=== PATIENT | male | born 1995 | race Caucasian/White ===

== ENCOUNTER 2016-07-27 00:56 | Emergency (ER) | payer BC ==
[~2016-07-27] VITALS: Ht 167.6 cm; Wt 59.0 kg
[2016-07-27 01:14] VITALS: BP 124/68; PULSE 60; RESP 18; TEMP 98.2; O2SAT 99
[2016-07-27 02:20] VITALS: BP 124/68; PULSE 60; RESP 18; TEMP 98.2; O2SAT 99
== END 2016-07-27 02:20 | disposition home or self-care (01) ==
LOC: SED 00:56
DX: M79.671 Pain in right foot (principal); J45.909 Unspecified asthma, uncomplicated
CPT/HCPCS: 99284

== ENCOUNTER 2019-05-12 13:42 | Emergency (ER) | payer BC ==
[~2019-05-12] VITALS: Ht 167.6 cm; Wt 61.7 kg
[2019-05-12 13:58] VITALS: BP_SYST 118
[2019-05-12] MEDS ORDERED: NACL 0.9% 1,000 ML IV ONE (14:15)
[2019-05-12] MEDS ORDERED: ONDANSETRON HCL 4 MG/2 ML VIAL IVP ONE (14:15)
[2019-05-12] MEDS ORDERED: KETOROLAC TROMETHAMINE 30 MG VIAL IVP ONE (14:15)
[2019-05-12 14:42] LABS: BASOPHILS % (AUTO) 0.3 % (0.0-2.0); EOSINOPHILS % (AUTO) 0.5 % (0.0-4.0); HEMOGLOBIN 15.3 g/dL (14.0-18.0); LYMPHOCYTES # (AUTO) 1.8 K/uL (1.0-5.5); LYMPHOCYTES % (AUTO) 22.6 % (20.5-51.5); MEAN CORPUSCULAR HEMOGLOBIN 31 pg (27-31); MEAN CORPUSCULAR HGB CONC 34 % (32-36); MEAN CORPUSCULAR VOLUME 91 fL (79.0-98.0); MONOCYTES # (AUTO) 0.6 K/uL (0.0-1.0); MONOCYTES % (AUTO) 7.8 % (1.7-9.3); NEUTROPHILS # (AUTO) 5.5 K/uL (1.8-7.7); NEUTROPHILS % (AUTO) 68.8 % (40.0-70.0); PLATELET COUNT (AUTO) 187 K/uL (130-430); RED BLOOD CELL COUNT(AUTO) 4.95 MIL/uL (4.2-6.2); RED CELL DISTRIBUTION WIDTH 13.8 % (9.0-15.0)
[2019-05-12 14:51] LABS: CALCIUM 9.1 mg/dL (8.4-11.0); CREATININE 0.93 mg/dL (0.55-1.30); POTASSIUM 4.1 mmol/L (3.5-5.1)
[2019-05-12 14:56] LABS: ALBUMIN 4.3 g/dL (3.4-4.8); TOTAL BILIRUBIN 0.8 mg/dL (0.0-1.0)
[2019-05-12] MEDS ORDERED: levETIRAcetam 500 MG TABLET PO ONE (16:00)
[2019-05-12 16:21] VITALS: BP_SYST 118
== END 2019-05-12 16:21 | disposition home or self-care (01) ==
LOC: SED 13:42
DX: K52.9 Noninfective gastroenteritis and colitis, unspecified (principal); R56.9 Unspecified convulsions; G44.001 Cluster headache syndrome, unspecified, intractable; J45.909 Unspecified asthma, uncomplicated; F12.90 Cannabis use, unspecified, uncomplicated
CPT/HCPCS: 36415; 70450; 74176; 80053; 83690; 85025; 86710; 96361; 96374; 96375; 99284; J1885; J2405; J7030